=== PATIENT | female | born 1955 | race Caucasian/White ===

== ENCOUNTER 2016-08-13 09:17 | Emergency (ER) | payer MEDICARE, OTHER ==
[~2016-08-13] VITALS: Ht 170.2 cm; Wt 95.0 kg
[~2016-08-13 09:17] MED LIST: CETI10CH PO; EFFE150C PO; FLUT50SP EACH NARE; HYDR10SO PO; LEXA20TA PO; METHY10 PO; REST0.05 OU; VALI5TAB PO
[2016-08-13 09:43] VITALS: BP 140/89; PULSE 94; RESP 16; TEMP 98.9; O2SAT 100
[2016-08-13] MEDS ORDERED: OXYM30TA4 PO (10:08)
[2016-08-13] MEDS ORDERED: LEXA20TA PO (10:15)
[2016-08-13] MEDS ORDERED: METHY10 PO (10:15)
[2016-08-13] MEDS ORDERED: VENL225T PO (10:15)
[2016-08-13] MEDS ORDERED: DICL75TA PO (10:15)
[2016-08-13] MEDS ORDERED: OXYMTAB PO (10:15)
[2016-08-13] MEDS ORDERED: VENL150T PO (10:15)
[2016-08-13] MEDS ORDERED: LIDOCAINE 1%/EPINEPHrine 1:100,000 SOLN 20 ML VIAL INFIL ONE (10:15)
[2016-08-13] MEDS ORDERED: TIZA2CAP3 PO (10:15)
[2016-08-13] MEDS ORDERED: REST0.05 EACH EYE (10:15)
--- NOTE | 2016-08-13 10:15 | PD ---
HPI Chief Complaint: Oral / Dental Pain or Problem Time Seen by Provider: 10:07 Travel History International Travel<30 days: No Contact w/Intl Traveler<30days: No Traveled to known affect area: No History of Present Illness HPI 61-year-old female here for evaluation of right upper/posterior dental pain and right facial swelling. The patient reports having a decayed tooth in this area. She states that the filling of this tooth came off about 2 months ago. Symptoms started yesterday. She had a fever yesterday evening. Pain is severe , constant, worse with palpation. She is able to swallow and tolerate her secretions. [facility] Past Medical History Medical History: Denies Significant Hx Diminished Hearing: No Tetanus Vaccination: Unknown ?: Not Past Surgical History Other Surgery: Yes (UMBILICAL HERNIA REPAIR) Social History Alcohol Use: No Tobacco Use: No Substance Use: No Allergies-Medications (Allergen,Severity, Reaction): Coded Allergies: Sulfa (Verified Allergy, Severe, Hives, 08/13/16) Reported Meds & Prescriptions Reported Meds & Active Scripts Active Reported Tizanidine (Tizanidine HCl) 2 Mg Cap 2 Mg PO DAILY PRN Ritalin IR (Methylphenidate HCl) 10 Mg Tab 10 Mg PO BID Lexapro (Escitalopram Oxalate) 20 Mg Tab 20 Mg PO DAILY Venlafaxine ER 24 HR (Venlafaxine HCl) 150 Mg Tab 150 Mg PO DAILY Oxymorphone (Oxymorphone HCl) 5 Mg Tab 5 Mg PO DAILY Restasis Opth Drops (Cyclosporine Opth Drops) 0.05% Emul 1 Drop EACH EYE BID Diclofenac Sodium DR (Diclofenac Sodium) 75 Mg Tabdr 75 Mg PO BID Opana ER (Crush Resistant) (Oxymorphone HCl) 30 Mg Tab 30 Mg PO Q12HR Review of Systems Except as stated in HPI: all other systems reviewed are Neg Physical Exam Narrative GENERAL: Well-developed, well-nourished, comfortable, no acute distress. SKIN: Warm and dry. HEAD: Normocephalic. Moderate right cheek swelling. No submandibular swelling or induration. EYES: Pupils equal and round. No scleral icterus. No injection or drainage. ENT: Mucous membranes pink and moist. Right upper molars, third from back with significant amount of decay with tenderness. No tongue or lip swelling. No drooling or stridor. Normal phonation. No trismus. NEUROLOGICAL: Awake and alert. No obvious cranial nerve deficits. Motor grossly within normal limits. Normal speech. PSYCHIATRIC: Appropriate mood and affect; insight and judgment normal. Data Data Last Documented VS Vital Signs Date Time Temp Pulse Resp B/P Pulse Ox O2 Delivery O2 Flow Rate FiO2 08/13/16 09:43 98.9 94 16 140/89 100 Orders Lidocai-Epi 1%-1:100,000 Inj (Xylocaine- (08/13/16 10:15) [facility] Medical Decision Making Medical Screen Exam Complete: Yes Emergency Medical Condition: Yes Medical Record Reviewed: Yes Differential Diagnosis Dental decay, dental abscess Narrative Course This is a 61-year-old female who is here for evaluation of right upper/ posterior dental pain with facial swelling. She has obvious decay to her third tooth. No drooling or stridor. No trismus. No submandibular swelling or induration. Greater palatine nerve block was performed on the right with improvement in symptoms. Patient was started on Pen-Vee K. She is stable for discharge home with dental follow-up this week. She was informed on when to return to the emergency department. She verbalizes understanding and agreement with plan. Procedures Procedure Narrative Right greater palatine nerve block: 1% lidocaine with epinephrine was injected in the area of the right greater palatine nerve. Patient experienced relief of pain. No complications. Tolerated well. Diagnosis Primary Impression: Pain, dental Referrals: Dentist 2 days Additional Instructions: Follow-up with a dentist this week. Return to the emergency department for worsening symptoms or any other concerns. Scripts Penicillin V Potassium 500 Mg Oda331 Mg PO Q6H 10 Days Ref 0 Prov:Bert Starks MD 08/13/16 Disposition: 01 DISCHARGE HOME Condition: Stable Bert Starks MD Aug 13, 2016 10:15
[2016-08-13] MEDS ORDERED: PENI500T PO (10:38)
[2016-08-13] MEDS ORDERED: PENICILLIN V POTASSIUM 500 MG TAB PO ONE (10:45)
== END 2016-08-13 10:52 | disposition home or self-care (01) ==
LOC: PHEFT 09:17
DX: K08.89 Other specified disorders of teeth and supporting structures (principal); K02.9 Dental caries, unspecified; R50.9 Fever, unspecified
CPT/HCPCS: 64400